=== PATIENT | male | born 1955 | race Caucasian/White ===

== ENCOUNTER 2018-05-19 12:57 | Observation (INO) | payer MEDICAID, OTHER ==
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
[2018-05-19] MEDS ORDERED: Bisacodyl 5 MG Tab PO PRN (16:30)
[2018-05-19] MEDS ORDERED: Albuterol/Ipratropium 3.0-0.5 MG/3 ML Neb Soln NEB PRN (16:30)
[2018-05-19] MEDS ORDERED: Temazepam 7.5 MG Cap PO PRN (16:30)
[2018-05-19] MEDS ORDERED: Acetaminophen/HYDROcodone 325-5 MG Tab PO PRN (16:30)
[2018-05-19] MEDS ORDERED: HYDROmorphone 1 MG/ML Syringe IVPUSH PRN (16:30)
[2018-05-19] MEDS ORDERED: hydrALAZINE 20 MG/ML SDV IVPUSH PRN (16:30)
[2018-05-19] MEDS ORDERED: Metoprolol Tartrate 5 MG/5 ML SDV IVPUSH PRN (16:30)
[2018-05-19] MEDS ORDERED: Acetaminophen 325 MG Tab PO PRN (16:30)
[2018-05-19] MEDS ORDERED: LORazepam 2 MG/ML SDV IV PRN (16:30)
[2018-05-19] MEDS ORDERED: Docusate Sodium 100 MG Cap PO PRN (16:30)
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
[2018-05-19 17:53] LABS: HEMOGLOBIN A1C 8.5 % (4.50-6.20)
[2018-05-19] MEDS ORDERED: Magnesium Oxide 400 MG Tab PO ONE (18:45)
[2018-05-19] MEDS: Insulin Lispro 100 UNIT/ML 10 ML VIAL SUBCUT PRN (22:09)
[2018-05-20] MEDS ORDERED: Multivitamins,Therapeutic Tab PO ONE (01:24)
[2018-05-20] MEDS ORDERED: chlordiazePOXIDE 25 MG Cap PO PRN (01:24)
[2018-05-20] MEDS ORDERED: cloNIDine 0.1 MG Tab PO PRN (01:24)
[2018-05-20] MEDS ORDERED: QUEtiapine 25 MG Tab PO ONE (01:26)
[2018-05-20] MEDS ORDERED: LORazepam 2 MG/ML SDV IVPUSH PRN (01:28)
[2018-05-20] MEDS ORDERED: chlordiazePOXIDE 25 MG Cap PO SCH (01:30)
[2018-05-20] MEDS: Folic Acid 1 MG Tab PO SCH (10:52)
[2018-05-20] MEDS: Lisinopril 20 MG Tab PO SCH (10:52)
[2018-05-20] MEDS: Thiamine 100 MG Tab PO SCH (10:52)
[2018-05-20] MEDS: Topiramate 25 MG Tab PO SCH ×2 (10:53→21:16)
[2018-05-20] MEDS: Enoxaparin 40 MG/0.4 ML Syringe SUBCUT SCH (10:57)
[2018-05-20] MEDS: Insulin Lispro 100 UNIT/ML 10 ML VIAL SUBCUT PRN (12:25)
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
[2018-05-20] MEDS: Insulin Lispro 100 UNIT/ML 10 ML VIAL SUBCUT SCH ×2 (17:40→22:42)
[2018-05-20] MEDS: QUEtiapine 25 MG Tab PO SCH (21:15)
[2018-05-20] MEDS: Simvastatin 20 MG Tab PO SCH (21:15)
[2018-05-20] MEDS ORDERED: Hydrocortisone 1% Crm 30 GM Tube TOP PRN (23:52)
[2018-05-21] MEDS: acetaZOLAMIDE 250 MG Tab PO SCH (08:32)
[2018-05-21] MEDS: Lisinopril 20 MG Tab PO SCH (08:33)
[2018-05-21] MEDS: Thiamine 100 MG Tab PO SCH (08:33)
[2018-05-21] MEDS: Topiramate 25 MG Tab PO SCH ×2 (08:34→21:07)
[2018-05-21] MEDS: Folic Acid 1 MG Tab PO SCH (08:34)
[2018-05-21] MEDS: Diclofenac Sodium 1% Gel 100 GM Tube TOP SCH ×4 (08:38→21:12)
[2018-05-21] MEDS: Enoxaparin 40 MG/0.4 ML Syringe SUBCUT SCH (08:39)
[2018-05-21] MEDS: Insulin Lispro 100 UNIT/ML 10 ML VIAL SUBCUT SCH ×4 (08:40→21:29)
[2018-05-21] MEDS: amLODIPine 10 MG Tab PO SCH (08:49)
[2018-05-21] MEDS ORDERED: Non-Formulary Medication 1 Each (Atorvastatin 20 MG) PO SCH (09:00)
[2018-05-21] MEDS ORDERED: TIMOLOL EYERT SCH (09:00)
[2018-05-21] MEDS ORDERED: Brimonidine 0.2% Ophth Soln 5 ML Bottle EYERT SCH (09:00)
[2018-05-21] MEDS ORDERED: Timolol Maleate 0.5% Ophth Soln 5 ML Bottle EYERT SCH (09:00)
[2018-05-21] MEDS ORDERED: BRIMONIDINE EYERT SCH (09:00)
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
[2018-05-21] MEDS ORDERED: Insulin Glarg,Human.Rec.Analog 100 UNIT/ML ML SUBCUT SCH (21:00)
[2018-05-21] MEDS ORDERED: Non-Formulary Medication 1 Each (Bimatoprost 1 DROP) EYERT SCH (21:00)
[2018-05-21] MEDS ORDERED: Simvastatin 20 MG Tab PO SCH (21:00)
[2018-05-21] MEDS ORDERED: Latanoprost 0.005% Ophth Soln 2.5 ML Bottle EYERT SCH (21:00)
[2018-05-21] MEDS: Insulin Glarg,Human.Rec.Analog 100 UNIT/ML ML SUBCUT SCH (21:03)
[2018-05-21] MEDS: QUEtiapine 25 MG Tab PO SCH (21:07)
[2018-05-21] MEDS: Simvastatin 20 MG Tab PO SCH (21:08)
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
[2018-05-22] MEDS: Insulin Lispro 100 UNIT/ML 10 ML VIAL SUBCUT SCH ×2 (08:26→12:04)
[2018-05-22] MEDS: Enoxaparin 40 MG/0.4 ML Syringe SUBCUT SCH (08:27)
[2018-05-22] MEDS: Insulin Glarg,Human.Rec.Analog 100 UNIT/ML ML SUBCUT SCH (08:27)
[2018-05-22] MEDS: Topiramate 25 MG Tab PO SCH (08:28)
[2018-05-22] MEDS: acetaZOLAMIDE 250 MG Tab PO SCH (08:28)
[2018-05-22] MEDS: Folic Acid 1 MG Tab PO SCH (08:28)
[2018-05-22] MEDS: Thiamine 100 MG Tab PO SCH (08:28)
[2018-05-22] MEDS: amLODIPine 10 MG Tab PO SCH (08:28)
[2018-05-22] MEDS: Lisinopril 20 MG Tab PO SCH (08:28)
[2018-05-22] MEDS: Diclofenac Sodium 1% Gel 100 GM Tube TOP SCH ×2 (08:34→12:04)
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
== END 2018-05-22 16:35 | disposition home or self-care (01) ==
LOC: JD.ED 12:57 → JD.MS 16:35
PROVIDERS: ADMIT Internal Medicine; ATTEND Internal Medicine
DX: T33.522A Superficial frostbite of left hand, initial encounter (principal); T33.831A Superficial frostbite of right toe(s), initial encounter; E11.65 Type 2 diabetes mellitus with hyperglycemia; I10 Essential (primary) hypertension; E78.5 Hyperlipidemia, unspecified; J44.9 Chronic obstructive pulmonary disease, unspecified; E66.9 Obesity, unspecified; Z68.36 Body mass index [BMI] 36.0-36.9, adult; M19.90 Unspecified osteoarthritis, unspecified site; F32.9 Major depressive disorder, single episode, unspecified; E78.00 Pure hypercholesterolemia, unspecified; F10.239 Alcohol dependence with withdrawal, unspecified; Z87.891 Personal history of nicotine dependence; Z79.4 Long term (current) use of insulin; Z79.899 Other long term (current) drug therapy; X31.XXXA Exposure to excessive natural cold, initial encounter
CPT/HCPCS: 36415; 51701; 80048; 82044; 82962; 83036; 83735; 84439; 84443; 85025; 97110; 97116; 97161; 97166; 97530; 99285; A9270; G0480; J1650; J1815; J2060; 96372; 96374; 97535-GP; G0378